=== PATIENT | male | born 1975 | race African-American/Black ===

== ENCOUNTER 2024-11-23 11:24 | Emergency (ER) | payer BC, OTHER ==
[~2024-11-23] VITALS: Ht 182.9 cm; Wt 120.7 kg
--- NOTE | 2024-11-23 11:41 | ED.PDOC ---
HPI Comments 49 y/o M, with PMHX of HTN presents to the ED for CC of high blood pressure. Patient states, that he was relayed to follow up with the ED by his PCP for a further evaluation regarding his hypertension. Patient relays, that he was diagnosed with hypertension in August 2024 and has been noncompliant with medications. Patient denies headaches, dizziness, lightheadedness, or N/V/D. No other symptoms or modifying factors at this time. Chief Complaint: High Blood Pressure Time Seen by MD: 11:40 Reviewed Notes: Nurses Notes, Medications, Allergies Allergies: Coded Allergies: NO KNOWN ALLERGIES (Unverified , 11/23/24) Information Source: Patient Mode of Arrival: Ambulatory Severity: Moderate Timing: Months Duration: Since onset Prehospital treatment: None Onset: At Rest Cardiac Risk Factors: HTN PE Risk Factors: None History of: None Modifying Factors: Nothing Associated Signs and Symptoms: None Past Medical History PAST MEDICAL HISTORY: HTN Surgical History: Hernia Repair Family History Family History: Family hx of DM Social History Smoker: Non-Smoker Alcohol: Occasionally Drugs: Denies Drug Use Lives In: Home Constitutional: denies: chills, diaphoresis, fatigue, fever, malaise, sweats, weakness, others EENTM: denies: blurred vision, double vision, ear bleeding, ear discharge, ear drainage, ear pain, ear ringing, eye pain, eye redness, hearing loss, mouth pain, mouth swelling, nasal discharge, nose bleeding, nose congestion, nose pain, photophobia, tearing, throat pain, throat swelling, voice changes, others Respiratory: denies: cough, hemoptysis, orthopnea, SOB at rest, shortness of breath, SOB with excertion, stridor, wheezing, others Cardiovascular: denies: chest pain, dizzy spells, diaphoresis, Dyspnea on exertion, edema, irregular heart beat, left arm pain, lightheadedness, palpitations, PND, syncope, others Gastrointestinal: denies: abdomen distended, abdominal pain, blood streaked bowels, constipated, diarrhea, dysphagia, difficulty swallowing, hematemesis, melena, nausea, poor appetite, poor fluid intake, rectal bleeding, rectal pain, vomiting, others Genitourinary: denies: burning, dysuria, flank pain, frequency, hematuria, incontinence, penile discharge, penile sore, pain, testicle pain, testicle swelling, urgency, others Neurological: denies: dizziness, fainting, headache, left sided numbness, left sided weakness, numbness, paresthesia, pre-existing deficit, right sided numbness, right sided weakness, seizure, speech problems, tingling, tremors, weakness, others Musculoskeletal: denies: back pain, gout, joint pain, joint swelling, muscle pain, muscle stiffness, neck pain, others Integumetry: denies: bruises, change in color, change in hair/nails, dryness, laceration, lesions, lumps, rash, wounds, others Allergic/Immunocompromised: denies: Difficulty Healing, Frequent Infections, Hives, Itching, others Hematologic/Lymphatic: denies: anemia, blood clots, easy bleeding, easy bruising, swollen glands, others Endocrine: denies: excessive hunger, excessive sweating, excessive thirst, excessive urination, flushing, intolerance to cold, intolerance to heat, unexplained weight gain, unexplained weight loss, others Psychiatric: denies: anxiety, bipolar disorder, depression, hopeless, panic disorder, schizophrenia, sleepless, suicidal, others All Other Systems: Reviewed and Negative Physical Exam General Appearance: No Apparent Distress HEENT: Normal ENT Inspection, Pharynx Normal, TMs Normal Neck: Full Range of Motion, Non-Tender, Normal, Normal Inspection Respiratory: Chest Non-Tender, Lungs Clear, No Accessory Muscle Use, No Respiratory Distress, Normal Breath Sounds Cardiovascular: No Edema, No JVD, No Murmur, No Gallop, Normal Peripheral Pulses, Regular Rate/Rhythm Breast Exam: Deferred Gastrointestinal: No Organomegaly, Non Tender, No Pulsatile Mass, Normal Bowel Sounds, Soft Genitalia: Deferred Pelvic: Deferred Rectal: Deferred Extremities: No calf tenderness, Normal capillary refill, Normal inspection, Normal range of motion, Non-tender, No pedal edema Musculoskeletal : Apperance: Normal Neurologic: Alert, invasive manager II-XII nml as Tested, No Motor Deficits, Normal Affect, Normal Mood, No Sensory Deficits Cerebellar Function: Normal Reflexes: Normal Skin: Dry, Normal Color, Warm Lymphatic: No Adenopathy EKG EKG : Pulse Rate (adult): 68 [place]: Normal Cardiac Rhythm: NSR Block: None Hypertrophy: LVH ST: Normal Was a procedure done? Was a procedure done?: No CP Differential Dx Differential Diagnosis: N/A Differential Diagnosis: HTN Essential, HTN Accelerated X-Ray, Labs, Meds, VS Vital Signs Date Time Temp Pulse Resp B/P (MAP) Pulse Ox O2 Delivery O2 Flow Rate FiO2 11/23/24 11:57 68 11/23/24 11:44 68 11/23/24 11:43 192/120 11/23/24 11:31 98.3 67 20 192/120 (144) 95 178/107 (130) Current Medications Medications (Trade) Dose Ordered Sig/Lenora Route Start Time Stop Time Status Last Admin Clonidine HCl (Catapres Tablet) 0.2 mg ONCE ONCE PO 11/23/24 11:45 11/23/24 11:46 DC 11/23/24 11:43 The patient was given clonidine 0.2 mg by mouth for the blood pressure of 192/120 The patient was asymptomatic this time The patient will follow up with his primary care doctor This primary care doctor will be starting him on medication for his blood pressure The patient will return to the emergency department's condition worsens. Time of 1ST Reevaluation: 12:20 Reevaluation 1ST: Unchanged Patient Education/Counseling: Diagnosis, Treatment, Prognosis, Need For Follow Up Family Education/Counseling: No Family Present Departure 1 Departure Time of Disposition: 12:03 Impression: Primary Impression: Hypertensive urgency Disposition: 01 HOME / SELF CARE / HOMELESS Condition: Fair Discharged With: Self Critical Care Note Critical Care Time?: No Stability Stability form required: No Heart Score Heart Score: Heart Score Response (Comments) Value History N/A 0 EKG N/A 0 Age N/A 0 Risk Factors N/A 0 Troponin N/A 0 Total 0 I personally scribed for NATHAN PADILLA MD ([email or web address]) on 11/23/24 at 11:41. Electronically submitted by Bettina Khan ([email or web address]). I personally scribed for NATHAN PADILLA MD ([email or web address]) on 11/23/24 at 11:57. Electronically submitted by Bettina Khan ([email or web address]). NATHAN PADILLA MD Nov 23, 2024 11:41
[2024-11-23] MEDS: cloNIDine HCL 0.1 MG TAB PO ONE (11:43)
--- NOTE | 2024-11-23 12:35 | ECG ---
[facility] Test Date: 2024-11-23 Test Time: 11:44:14 Pat Name: BARON COX Department: ED Room: Gender: M Older Adult Social Work Specialist: : [id number] Requested By: NATHAN PADILLA Order Number: [id number] Reading MD: Measurements Intervals [place] Rate: 68 P: 49 IN: 178 QRS: 7 QRSD: 93 T: 27 QT: 411 QTc: 438 Interpretive Statements Sinus rhythm Consider left ventricular hypertrophy ST elev, probable normal early repol pattern Please click the below link to view image of tracing.
[2024-11-23 12:39] VITALS: BP 145/95; PULSE 68; RESP 16; TEMP 98; O2SAT 97
== END 2024-11-23 12:46 | disposition home or self-care (01) ==
LOC: ER 11:24
DX: I16.0 Hypertensive urgency (principal); Z98.890 Other specified postprocedural states
CPT/HCPCS: 93005